=== PATIENT | female | born 1985 | race Caucasian/White ===

== ENCOUNTER 2017-09-16 20:17 | Emergency (ER) | payer MEDICAID, OTHER ==
[2017-09-16 20:32] VITALS: RESP 20; TEMP 97.4; O2SAT 99
[2017-09-16 21:05] LABS: APPEARANCE,URINE Clear; BILIRUBIN,URINE NEGATIVE (NEGATIVE); COLOR,URINE Yellow; GLUCOSE, URINE (UA) NEGATIVE (NEGATIVE); KETONES,URINE NEGATIVE (NEGATIVE); LEUKOCYTE ESTERASE ,URINE NEGATIVE (NEGATIVE); NITRATE,URINE NEGATIVE (NEGATIVE); OCCULT BLOOD,URINE NEGATIVE (NEG-TRACE); UROBILINOGEN,URINE 0.2 (0.2-1.0 EU)
[2017-09-16 21:13] LABS: BASOPHILS % (AUTO) 2 % (0-3); EOSINOPHILS % (AUTO) 3 % (0-9); HEMATOCRIT 42 % (35-47); HEMOGLOBIN 14.5 gm/dl (12.0-15.5); LYMPHOCYTES % (AUTO) 27.5 % (10-50); MEAN CORPUSCULAR HEMOGLOBIN 30.2 pg (27.0-32.0); MEAN CORPUSCULAR HGB CONC 34.8 gm/dl (32.0-36.0); MEAN CORPUSCULAR VOLUME 87 fL (81-99); MONOCYTES % (AUTO) 5.4 % (0-12); NEUTROPHILS % (AUTO) 62.6 % (37-80)
[2017-09-16 21:19] LABS: BACTERIA 1+ (< 1+); CRYSTALS NEGATIVE (0-3 AVE/HPF); EPITHELIAL CELLS 0-4 (SQUAMOUS); RBC,URINE NEGATIVE (0-3AV/HPF); WBC,URINE 0-2 (0-5AV/HPF)
[2017-09-16 21:25] LABS: ALBUMIN 3.7 gm/dl (3.4-5.0); ALKALINE PHOSPHATASE 95 IU/L (46-116); ALT 22 IU/L (14-63); AST 17 IU/L (15-37); BILIRUBIN,TOTAL 0.3 mg/dl (0.2-1.0); BLOOD UREA NITROGEN 12 mg/dl (7-18); CALCIUM 9.1 mg/dl (8.5-10.1); CARBON DIOXIDE 23.8 mEq/L (21-32); CHLORIDE 104 mMol/L (98-107); CREATININE 0.92 mg/dl (0.60-1.00); GLOM FILT RATE 70 mL/min (>60); GLUCOSE 90 mg/dl (74-106); POTASSIUM 3.8 mMol/L (3.5-5.1); SODIUM 141 mMol/L (136-145); THYROID STIMULATING HORMONE 0.739 uIU/ml (0.358-3.740); TOTAL PROTEIN 7.8 gm/dl (6.4-8.2); TROP I < 0.017 ng/ml (0.000-0.056)
[2017-09-16] MEDS ORDERED: SODIUM CHLORIDE 0.9% 1000ML 1,000 ML IV SCH (21:37)
[2017-09-16] MEDS ORDERED: CYCLOBENZAPRINE 10 MG TAB PO ONE (21:38)
[2017-09-16 21:39] LABS: AMPHETAMINES POSITIVE (NEGATIVE); BARBITUATES NEGATIVE (NEGATIVE); BENZODIAZEPINES NEGATIVE (NEGATIVE); CANNABINOL(THC) POSITIVE (NEGATIVE); METHADONE NEGATIVE (NEGATIVE); OPIATES(OP13) NEGATIVE (NEGATIVE); TRICYCLIC ANTIDEPRESSANTS NEGATIVE (NEGATIVE)
[2017-09-16] MEDS ORDERED: CYCLOBENZAPRINE 10 MG TAB ONE (21:39)
[2017-09-16 21:40] LABS: COCAINE(COC) NEGATIVE (NEGATIVE); METHAMPHETAMINES POSITIVE (NEGATIVE); OXYCODONE(OXY) NEGATIVE (NEGATIVE); PROPOXYPHENE(PPX) NEGATIVE (NEGATIVE)
[2017-09-17 00:01] VITALS: BP 159/108; PULSE 79
== END 2017-09-16 22:32 | disposition home or self-care (01) | DRG 93 ==
LOC: ED 20:17
DX: R20.2 Paresthesia of skin (principal); F15.11 Other stimulant abuse, in remission; M79.621 Pain in right upper arm; G83.21 Monoplegia of upper limb affecting right dominant side; Z63.9 Problem related to primary support group, unspecified; R40.2362 Coma scale, best motor response, obeys commands, at arrival to emergency department; R40.2142 Coma scale, eyes open, spontaneous, at arrival to emergency department; R40.2252 Coma scale, best verbal response, oriented, at arrival to emergency department; R29.701 NIHSS score 1
CPT/HCPCS: 36415; 70450; 73030; 80053; 80305; 81001; 84443; 84484; 85025; 96365; 99284; 99291; A9270-GY

== ENCOUNTER 2018-07-20 23:04 | Emergency (ER) | payer SELFPAY ==
[2018-07-20] MEDS ORDERED: KETOROLAC TROMETHAMINE 30 MG/ML SOL IV ONE (23:19)
[2018-07-20] MEDS ORDERED: KETOROLAC TROMETHAMINE 30 MG/ML SOL ONE (23:25)
[2018-07-21] MEDS ORDERED: APAP/HYDROCODONE 1 EACH TABLET PO ONE ×2 (00:04→01:18)
[2018-07-21] MEDS ORDERED: TDAP VACCINE 0.5 ML SUS IM ONE ×2 (00:14)
[2018-07-21] MEDS ORDERED: APAP/HYDROCODONE 1 EACH TABLET ONE ×2 (00:15→01:19)
[2018-07-21 01:49] VITALS: TEMP 97.7
[2018-07-21 01:50] VITALS: RESP 16
[2018-07-21 01:51] VITALS: BP 147/95; PULSE 88; O2SAT 94
== END 2018-07-21 01:30 | disposition home or self-care (01) | DRG 563 ==
LOC: ED 23:04
DX: S92.002A Unspecified fracture of left calcaneus, initial encounter for closed fracture (principal); W17.89XA Other fall from one level to another, initial encounter; Y93.89 Activity, other specified; Y92.9 Unspecified place or not applicable
CPT/HCPCS: 73590; 73610; 73650; 90471; 90715; 96372; 96374; 99282; 99283; 99284; G0390; J1885; A9270-GY; E0114; J1170

== ENCOUNTER 2018-07-21 21:30 | Emergency (ER) | payer SELFPAY | END 2018-07-21 23:35 | disposition home or self-care (01) | LOC: ED 21:30 ==